=== PATIENT | female | born 1985 | race African-American/Black ===

== ENCOUNTER 2019-06-29 11:29 | Emergency (ER) | payer MEDICAID, SELFPAY ==
[2019-06-29 11:31] VITALS: BP 130/85; PULSE 107; RESP 16; TEMP 38; O2SAT 99; BMI 29.0
--- NOTE | 2019-06-29 12:05 | RAD_ITS ---
STUDY: X-RAY CHEST REASON FOR EXAM: Female, 34 years old. Flu like symptoms and chest pain for 3 days TECHNIQUE: Single AP portable view of the chest. COMPARISON: None. FINDINGS: The lungs are clear and expanded. There is no demonstrated pleural abnormality. Normal size heart. Normal mediastinum and pasquale. Normal visualized pulmonary arteries. Normal visualized aortic arch and descending thoracic aorta. Normal visualized thoracic spine. Normal visualized ribs, clavicles, and shoulders. There is no demonstrated abnormality of the visualized soft tissue structures of the upper abdomen. RAD/Chest 1 View (Portable) IMPRESSION: Normal x-ray examination of the chest. Electronically Signed: Derrick Alvarez MD at 12:40 EST , Service support ,
--- NOTE | 2019-06-29 12:21 | ED.DCSUM_ITS ---
- ER Visit Summary Date of Service: 06/29/19 Chief Complaint: Fever, body aches History of Present Illness: The patient is a 34 F presenting with fever, body aches. She states this started 3 to 4 days ago. She complains of diffuse myalgias. She has had a nonproductive cough. She has had subjective fever and chills. She complains of sore throat, painful swallowing, no difficulty swallowing. She states that she was exposed to someone who had influenza A. She did not receive a flu shot this year. Denies other complaints. Physical Examination: Vitals are stable. Temperature 100.4. Alert no acute distress. HEENT exam pharynx is normal, uvula midline Neck is supple. No meningismus Lungs are clear and equal bilaterally. Heart is regular rate and rhythm. Abdomen is soft nontender nondistended. Extremities are unremarkable. Skin is warm and dry. No rash No focal neurologic deficit. Remainder of exam is unremarkable. Emergency Department Course and Treatment: Patient is an IV fluids, Toradol, Tylenol. Chest x-ray showed no acute process. Influenza B positive. On reevaluation, patient is feeling improved. Advised to follow-up with her primary care physician. Advised return to ED for worsening complaints. Disposition: Discharged home Impression: Influenza This note was generated with [employer] dictation software. It may contain incorrect words, spelling, and punctuation that were not noted in review of the chart prior to signing ED Disposition - Plan for ED Patient: Disposition: Home or Assisted Living Instructions: INFLUENZA (Adult) Referrals: ARLEEN RICHARD [Other]
[2019-06-29] MEDS: 0.9% Normal Saline 1,000 ML 999 ML IV (12:29)
[2019-06-29] MEDS: Acetaminophen 500 MG Tablet 1000 MG PO (12:30)
[2019-06-29] MEDS: Ketorolac 30 MG/ML Syringe IV (12:30)
--- NOTE | 2019-06-29 13:42 | ED.RN ---
pos flu b called from the lab dr flores aware
[2019-06-29 13:44] VITALS: RESP 18
--- NOTE | 2019-06-29 13:46 | ED.DEP ---
ED Disposition - Plan for ED Patient: Instructions: INFLUENZA (Adult) Referrals: ARLEEN RICHARD [Other]
[2019-06-29 14:02] VITALS: TEMP 37.3
== END 2019-06-29 14:03 | disposition home or self-care (01) ==
LOC: ED 12:28
PROVIDERS: Emergency Provider Emergency Medicine
DX: J11.1 Influenza due to unidentified influenza virus with other respiratory manifestations (principal); Z87.891 Personal history of nicotine dependence
CPT/HCPCS: 71045; 87804; 96361; 96374; 99284; J7030; A4216